=== PATIENT | male | born 1955 | race Caucasian/White ===

== ENCOUNTER → 2023-10-23 12:41 | Outpatient (REF) | payer OTHER, SELFPAY | LOC: RCS 12:41 | PROVIDERS: ATTENDING PHYSICIAN Nurse Practitioner Family; FAMILY PHYSICIAN Internal Medicine | DX: I10 Essential (primary) hypertension (principal); I48.0 Paroxysmal atrial fibrillation; G47.33 Obstructive sleep apnea (adult) (pediatric) | CPT/HCPCS: 93005 ==

== ENCOUNTER → 2023-11-02 09:55 | Outpatient (REF) | payer OTHER, SELFPAY | LOC: HWRAD 09:55 | PROVIDERS: ATTENDING PHYSICIAN Internal Medicine; FAMILY PHYSICIAN Internal Medicine | DX: R22.1 Localized swelling, mass and lump, neck (principal) | CPT/HCPCS: 76536 ==

== ENCOUNTER → 2024-10-28 13:58 | Outpatient (REF) | payer OTHER, SELFPAY | LOC: HWRAD 13:58 | PROVIDERS: ATTENDING PHYSICIAN Internal Medicine | DX: M16.12 Unilateral primary osteoarthritis, left hip (principal); S49.91XA Unspecified injury of right shoulder and upper arm, initial encounter | CPT/HCPCS: 73030; 73502 ==

== ENCOUNTER 2025-01-13 06:18 | Day surgery (SDC) | payer OTHER, SELFPAY | END 2025-01-13 10:31 | disposition home or self-care (01) | LOC: GI 06:18 | PROVIDERS: ATTENDING PHYSICIAN Internal Medicine Gastroenterology | DX: Z12.11 Encounter for screening for malignant neoplasm of colon (principal); K57.30 Diverticulosis of large intestine without perforation or abscess without bleeding; K64.8 Other hemorrhoids; K31.89 Other diseases of stomach and duodenum; K22.70 Barrett's esophagus without dysplasia; D12.3 Benign neoplasm of transverse colon; Z86.0100 Personal history of colon polyps, unspecified | CPT/HCPCS: 45385; 43239; 88305; 88342 ==

== ENCOUNTER → 2025-02-08 13:40 | Outpatient (REF) | payer OTHER, SELFPAY | LOC: RAD 13:40 | PROVIDERS: ATTENDING PHYSICIAN Internal Medicine | DX: Z01.818 Encounter for other preprocedural examination (principal) | CPT/HCPCS: 70030 ==

== ENCOUNTER → 2025-02-27 09:46 | Outpatient (REF) | payer OTHER, SELFPAY | LOC: RAD 09:46 | PROVIDERS: ATTENDING PHYSICIAN Internal Medicine | DX: Z01.818 Encounter for other preprocedural examination (principal) | CPT/HCPCS: 70030 ==

== ENCOUNTER 2025-07-03 21:20 | Emergency (ER) | payer OTHER, SELFPAY ==
[2025-07-03 21:32] VITALS: BP 158/96
[2025-07-03 21:49] LABS: Hematocrit 43.9 % (39.0-52.0); Hemoglobin 15.3 g/dL (13.0-18.0); Mean Corp Hgb Conc. 34.9 g/dL (33.0-37.0); Mean Corpuscular Volume 95.0 fL (80.0-94.0); Nucleated Red Blood Cells % 0 % (-); Platelet Count 153 10^3/uL (130-400); Red Cell Dist. Width 12.6 % (11.5-14.5)
[2025-07-03 22:11] LABS: ALT (SGPT) 13 U/L (0-50); AST (SGOT) 20 U/L (17-59); Albumin 4.4 g/dl (3.5-5.0); Alkaline Phosphatase 59 U/L (38-126); Blood Urea Nitrogen 23 mg/dl (9-20); Calcium 9.2 mg/dl (8.4-10.2); Carbon Dioxide 27 mmol/L (22-30); Chloride 104 mmol/L (98-107); Glucose 127 mg/dl (70-99); Potassium 3.8 mmol/L (3.5-5.1); Sodium 137 mmol/L (135-145); Total Protein 6.5 g/dl (6.3-8.2); eGFR > 60.00
[2025-07-03 22:15] LABS: Troponin I 0.020 ng/ml
[2025-07-03 23:08] VITALS: BP 115/66
--- NOTE | 2025-07-03 23:25 | ED.GENMED ---
History of Present Illness
General
Chief Complaint: Heart Rate Problem
Time Seen by Provider: 07/03/25 23:10
History of Present Illness
History of Present Illness:
70-year-old male with history of paroxysmal A-fib status post ablation presents to the emergency department for evaluation of heart palpitations that began earlier today. He states he used his [employer] mobile device which confirmed A-fib. At the
direction of his program lead he took an extra dose of short acting diltiazem as well as Eliquis, several hours later took a second dose of diltiazem. He did become dizzy while waiting evaluation in the emergency department waiting room. No chest
pain or shortness of breath. He is not chronically anticoagulated
Past History
Past History
ED Past Medical History: GERD and HTN
ED Past Surgical History: Cholecystectomy and Orthopedic (Fracture repair)
Social History
Tobacco: Non-smoker
Drug: None
Personal: Single
Living: alone
Employment: Employed
Review of Systems
Review of Systems
Allergies reviewed?: Yes
All Other Systems: ROS reviewed and negative except as documented in HPI and ROS
Phy Exam
Physical Exam
Physical Exam:
GEN: Well appearing, NAD, WDWN
HEENT: Oral mucosa moist, no scleral icterus
Cardiac: Bradycardic, regular, no murmur
Lung: No respiratory distress, no tachypnea
MSK: No gross deformity or injuries
Skin: Good color, no pallor or jaundice, no rashes
Neuro: AO x3, moves all extremities freely
Psych: Calm, cooperative
Course
Orders/Labs/Results
Orders:
Orders
07/03/25 21:20
EKG [Electrocardiogram (*1)] Urgent
Reason for Study: Atrial Fibrillation
EKG- Treatment ONCE
07/03/25 21:39
Complete Blood Count/With Diff Urgent
Comprehensive Metabolic Panel Urgent
Troponin I Urgent
Abnormal Lab Results
07/03/25
21:39
RBC 4.62 L 10^6/uL
(4.70-6.10)
MCV 95.0 H fL
(80.0-94.0)
MCH 33.1 H pg
(27.0-31.0)
BUN 23 H mg/dl
(9-20)
Glucose 127 H mg/dl
(70-99)
07/03/25 21:39
07/03/25 21:39
Vital Signs
Initial and Last Documented VS:
Initial Vital Signs
Temp Pulse Resp BP Pulse Ox
97.8 F 88 22 158/96 98
07/03/25 21:32 07/03/25 21:32 07/03/25 21:32 07/03/25 21:32 07/03/25 21:32
Last Documented Vital Signs
Temp Pulse Resp BP Pulse Ox
97.8 F 55 14 115/66 96
07/03/25 21:32 07/03/25 23:08 07/03/25 23:08 07/03/25 23:08 07/03/25 23:25
MDM/Problems Addressed
MDM/Problems Addressed:
Patient converted to sinus bradycardia while awaiting evaluation in the ED. I have encouraged him to continue Eliquis twice daily given the repeat bout of A-fib until cardiology follow-up which she is scheduled on Thursday. Discussed future action
plan should he go back into A-fib while awaiting follow-up
Comment
Comment:
Initial EKG independently interpreted by me shows a rate controlled atrial fibrillation
Telemetry monitoring after arrival to the ED exam room shows the patient is in a sinus bradycardia
*Pulse Oximetry
SaO2: 96
Oxygen Mode of Delivery: Room air
Patient hypoxic: no
*Critical Care Note
Total Time (30-74mins, 75-104mins- exclusive of procedures): Not Applicable
ED Attending Note
-
Portions of this chart may have been created with voice recognition software.� Occasional wrong word or��sound alike� substitutions may have occurred due to the inherent limitations of voice recognition software.
Discharge Plan
Departure
Patient Disposition: Home (Routine Discharge)
Date of Disposition: 07/03/25
Time of Disposition: 23:25
Patient with high blood pressure during this ER visit?: No
Discharge Problem:
Paroxysmal atrial fibrillation
Instructions: Atrial Fibrillation (DC)
Prescriptions:
No Action
enalapril maleate 10 MG tablet
20 mg PO BID
aspirin 81 MG tablet,delayed release (DR/EC)
81 mg PO DAILY
diltiazem HCl 240 MG capsule,extended release 24hr
240 mg PO DAILY
famotidine 40 MG tablet
40 mg PO HS
allopurinol 100 MG tablet
100 mg PO DAILY
Patient Comments:
02/15/2022: TAKEN W/ 300MG = 400MG
pantoprazole 40 MG tablet,delayed release (DR/EC)
40 mg PO DAILY
doxazosin 4 MG tablet
4 mg PO HS
allopurinol 300 MG tablet
300 mg PO DAILY
Patient Comments:
02/15/2022: TAKEN W/ 100MG = 400MG
docusate sodium [Colace] 100 mg capsule
100 mg PO BID Qty: 60 0RF
mecobalamin (vitamin B12) 1,000 mcg tablet,chewable
1,000 mcg PO DAILY Qty: 30 0RF
Metamucil 3.4 gram/5.4 gram powder
1 tbsp PO DAILY Qty: 660 0RF
Activity Restrictions/Additional Instructions:
Take your Eliquis twice daily until your program lead follow up visit
Interventions
Interventions:
*Risk Screen - Suicide Last Done: 07/03/25 21:32
*General Assessment Last Done: 07/03/25 23:00
*Neglect/Abuse Screening Last Done: 07/03/25 21:32
*ED- Fall Risk Assessment Last Done: 07/03/25 23:00
*ED COVID-19 Vaccine History Last Done: 07/03/25 23:14
*ED Influenza Vaccine History Last Done: 07/03/25 23:00
*Nursing Disposition Last Done: 07/03/25 23:38
ED- Cardiac Assessment Last Done: 07/03/25 23:00
ED- Pulmonary Assessment Last Done: 07/03/25 23:00
Discharge Date and Time
Discharge Date/Time: 07/03/25 23:39
Print Language: SYRIAC
== END 2025-07-03 23:39 | disposition home or self-care (01) ==
LOC: EMR 21:20
PROVIDERS: Emergency Medicine; EMERGENCY PHYSICIAN Emergency Medicine; FAMILY PHYSICIAN Internal Medicine
DX: I48.0 Paroxysmal atrial fibrillation (principal); I10 Essential (primary) hypertension; Z90.49 Acquired absence of other specified parts of digestive tract
CPT/HCPCS: 99284; 80053; 84484; 85025; 93005

== ENCOUNTER 2025-07-23 19:20 | Inpatient (IN) | payer OTHER, SELFPAY ==
[2025-07-23] VITALS (31 sets, daily range): BP systolic 98–146; BP diastolic 48–99; BMI 31.5; BMI 32.2
[2025-07-23 15:20] LABS: Hematocrit 44.1 % (39.0-52.0); Hemoglobin 16.0 g/dL (13.0-18.0); Mean Corp Hgb Conc. 36.3 g/dL (33.0-37.0); Mean Corpuscular Volume 89.6 fL (80.0-94.0); Nucleated Red Blood Cells % 0 % (-); Platelet Count 185 10^3/uL (130-400); Red Cell Dist. Width 11.9 % (11.5-14.5)
[2025-07-23] MEDS: CARDIZEM 10 MG IV ×2 (15:29→16:51)
[2025-07-23] MEDS: CARDIZEM 125 IV ×2 (15:29→22:35)
[2025-07-23 15:49] LABS: Blood Urea Nitrogen 29 mg/dl (9-20); Calcium 9.4 mg/dl (8.4-10.2); Carbon Dioxide 16 mmol/L (22-30); Chloride 105 mmol/L (98-107); Estimated Creatinine Clearance 57 ml/min; Glucose 104 mg/dl (70-99); Sodium 134 mmol/L (135-145); eGFR 59.84
[2025-07-23] MEDS: NSS 500 IV (16:03)
[2025-07-23 16:24] LABS: Potassium 3.8 mmol/L (3.5-5.1)
--- NOTE | 2025-07-23 17:55 | ED.GENMED ---
History of Present Illness
General
Chief Complaint: Heart Rate Problem
Source: patient
Time Seen by Provider: 07/23/25 15:01
History of Present Illness
History of Present Illness:
Note:
CHIEF COMPLAINT(S)
Irregular heart rhythm and low blood pressure.
HISTORY OF PRESENT ILLNESS
The patient is a 70-year-old male with a history of atrial fibrillation status post-ablation, presenting with concerns of irregular heart rhythm. The patient reports a history of experiencing palpitations, describing them as a feeling of the heart
'beating in a certain kind of way' and occasionally 'taking the breath away.' The patient monitors his pulse and notes irregularities which he associates with atrial fibrillation. He utilizes a cardiac device at home to confirm his suspicions of
being in atrial fibrillation and adjusts his anticoagulant, Eliquis (apixaban), accordingly. However, Eliquis is not routinely taken due to a prior gastrointestinal bleed approximately three years ago, opting instead for episodic use when symptoms
are present.
Recently, the patient self-administered medication based on an episode of irregular heartbeat, which resulted in hypotension measured at approximately 85/70 mmHg. The patient managed this initially at home by increasing oral intake, raising his
blood pressure to about 100 mmHg and contemplated whether to seek medical care. Symptoms began on the previous day. Upon review in the facility, the patient was found to be in atrial flutter with a ventricular rate of 145 beats per minute. The
patient has a history of undergoing electrical and pharmacological interventions for rhythm yazdanism in the past, with occasional self-resolution.
PHYSICAL EXAM
General: Alert, no acute distress.
Cardiovascular: Regular rhythm with tachycardia.
Respiratory: Lungs clear.
Extremities: No cyanosis, no edema
Neuro exam: Awake alert and oriented x 3, cranial nerves intact, no focal motor deficits
Abdomen nondistended
Skin: Dry, intact
PLAN
1. Administer intravenous diltiazem to slow the heart rate and potentially facilitate conversion to normal sinus rhythm.
2. Review the patients previous medical records for history of interventions and outcomes.
3. Monitor the patients heart rate and rhythm closely following intervention.
4. Discuss long-term management plans, including potential adjustments to anticoagulation therapy in consultation with cardiology, considering the patients history of gastrointestinal bleeding.
DIFFERENTIAL DIAGNOSIS
The Differential Diagnosis includes, in no particular order and is not limited to:
1. Atrial fibrillation
2. Atrial flutter
3. Paroxysmal supraventricular tachycardia
4. Multifocal atrial tachycardia
5. Ventricular tachycardia
6. Sinus tachycardia secondary to medications or dehydration
7. Medication-induced arrhythmia
8. Anxiety-related palpitations
9. Hyperthyroidism
10. Heart failure exacerbation
ADDITIONAL HISTORY OBTAINED FROM SOURCES OTHER THAN THE PATIENT
Not applicable.
EXTERNAL RECORDS REVIEWED
Not applicable.
CHRONIC MEDICAL CONDITIONS SIGNIFICANTLY AFFECTING CARE
Atrial fibrillation, History of gastrointestinal bleed
SOCIAL DETERMINANTS AFFECTING HEALTH
Not applicable.
ALLERGIES
None known.
PAST MEDICAL HISTORY
Atrial fibrillation
PAST SURGICAL HISTORY
Ablation for atrial fibrillation
FAMILY HISTORY
Not applicable.
IMMUNIZATION HISTORY
Not applicable.
SOCIAL HISTORY
Not applicable.
MEDICATIONS
Eliquis (apixaban), episodically taken. Other medications or specific dosages are not mentioned.
REVIEW OF SYSTEMS
- Cardiovascular: Palpitations, irregular pulse.
- Neurological: Near syncope upon standing.
EKG
My independent EKG interpretation is:
- Time of EKG: Not specified
- Rhythm: Atrial flutter
- Heart rate: 145 bpm
- [place]: Normal
- Abnormalities: No specific ST-T wave changes, no QRS changes
Disposition:
SUMMARY OF ENCOUNTER
The patient is a 70-year-old male with a history of atrial fibrillation, presenting with atrial flutter with rapid ventricular response. Due to prior gastrointestinal bleeding, the patient is not on continuous anticoagulation. Today, the patient
self-administered a dose of apixaban (Eliquis) and experienced a near-syncopal episode at home. Upon evaluation in the emergency department, the patients ventricular rate improved after receiving diltiazem, although he remains in atrial flutter with
variable block. The case was discussed with cardiology, which suggested that emergency department cardioversion may be risky due to the patients anticoagulation status.
DISPOSITION
Admit
ASSESSMENT
The patient presents with atrial flutter with rapid ventricular response, complicated by irregular anticoagulation due to a history of gastrointestinal bleeding.
EMERGENCY TREATMENTS ADMINISTERED
Intravenous diltiazem was administered to control heart rate.
MANAGEMENT OF THE PATIENTS CARE WAS DISCUSSED WITH
Dr. Hannah Temple, Cardiology
PLAN
The patient will be admitted for further management of atrial flutter. Consideration for pharmacological cardioversion with amiodarone and potential transesophageal echocardiogram-guided cardioversion if required.
INDEPENDENT REVIEW OF LABS AND INTERPRETATION OF TESTS
My independent EKG interpretation is atrial flutter with a ventricular rate of 145 bpm, normal axis, without specific ST-T wave or QRS changes.
MEDICATION RECONCILIATION
Apixaban (Eliquis), not routinely taken due to history of gastrointestinal bleeding. Patient reports taking a dose today.
MEDICAL DECISION MAKING
-Complexity of Data Reviewed: Chronic conditions affecting care include atrial fibrillation and history of gastrointestinal bleeding. Differential diagnosis includes atrial fibrillation, atrial flutter, paroxysmal supraventricular tachycardia,
multifocal atrial tachycardia, ventricular tachycardia, sinus tachycardia, medication-induced arrhythmia, anxiety-related palpitations, hyperthyroidism, and heart failure exacerbation.
-Data:
Category 1:
My independent interpretation of EKG shows atrial flutter.
Category 3:
Discussion of management with Dr. Hannah Temple, Cardiology.
-Risk:
Consideration of Admission/Observation: Escalation of care including admission/observation was considered given the complexity and risk of the patients presenting complaint, exam findings, and underlying comorbidities. However, ultimately, I feel
the patient is safe for outpatient management with close follow-up. Reasoning: Work-up reassuring, does not reveal any acute life/organ-threatening processes, patients symptoms well controlled upon reevaluation, reexamination is reassuring, vitals
are stable, patient agreeable with discharge, reliable for follow-up.
DIAGNOSIS
Atrial flutter with variable block (I48.3)
Atrial fibrillation (I48.91)
Past History
Past History
ED Past Medical History: GERD and HTN
ED Past Surgical History: Cholecystectomy and Orthopedic (Fracture repair)
Social History
Tobacco: Non-smoker
Drug: None
Personal: Single
Living: alone
Employment: Employed
Phy Exam
Physical Exam
Physical Exam:
.
Course
Orders/Labs/Results
Orders:
Orders
07/23/25 14:53
Electrocardiogram (*1) Urgent
Reason for Study: Atrial Fibrillation
EKG- Treatment ONCE
07/23/25 15:10
Basic Metabolic Panel Urgent
Complete Blood Count/With Diff Urgent
TSH Reflex To Free T4 Urgent
07/23/25 15:18
Diltiazem 125 mg/125 ml Nss [Cardizem] 125 mg in 125 ml IV NOW
Initial dose in mg/hr, then titrate:: 10
Titrate to keep:: Heart rate 80-100 bpm
Titrate by mg/hr:: 5 mg/hr
Frequency of titrations (minutes):: 15
Maximum dose in mg/hr:: 15
Diltiazem HCl [Cardizem] 10 mg IV NOW STA
07/23/25 15:57
Potassium Urgent
07/23/25 15:58
0.9% Sodium Chloride 500 ml [Nss] 500 ml IV BOLUS
07/23/25 16:37
Diltiazem HCl [Cardizem] 10 mg IV NOW STA
07/23/25 16:46
Diltiazem HCl [Cardizem] 15 mg IV NOW STA
07/23/25 17:11
Electrocardiogram (*1) Urgent
Reason for Study: Abnormal EKG
EKG- Treatment ONCE
Abnormal Lab Results
07/23/25
15:10
MCH 32.5 H pg
(27.0-31.0)
Absolute Monos (auto) 0.7 H 10^3/uL
(0.1-0.6)
Sodium 134 L mmol/L
(135-145)
Carbon Dioxide 16 L mmol/L
(22-30)
BUN 29 H mg/dl
(9-20)
Glucose 104 H mg/dl
(70-99)
07/23/25 15:10
07/23/25 15:57
Vital Signs
Initial and Last Documented VS:
Initial Vital Signs
Temp Pulse Resp BP Pulse Ox
97.7 F 144 17 114/85 99
07/23/25 14:57 07/23/25 14:57 07/23/25 14:57 07/23/25 14:57 07/23/25 14:57
Last Documented Vital Signs
Temp Pulse Resp BP Pulse Ox
97.7 F 98 12 118/78 96
07/23/25 14:57 07/23/25 16:51 07/23/25 16:15 07/23/25 16:15 07/23/25 17:56
*Pulse Oximetry
SaO2: 96
Oxygen Mode of Delivery: Room air
Patient hypoxic: no
*Search Coordinator Interpretation
Rate: tachycardiac
Interpretation: abnormal
Rhythm: atrial flutter
*Critical Care Note
Total Time (30-74mins, 75-104mins- exclusive of procedures): 40 minutes
ED Attending Note
-
Portions of this chart may have been created with voice recognition software.� Occasional wrong word or��sound alike� substitutions may have occurred due to the inherent limitations of voice recognition software.
Discharge Plan
Departure
Patient Disposition: Admit
Date of Disposition: 07/23/25
Time of Disposition: 17:55
Admit to: Telemetry
Presentation/result/management discussed w/ accepting MD/DO: Hospitalist
Discharge Problem:
Atrial flutter with rapid ventricular response
Prescriptions:
No Action
aspirin 81 MG tablet,delayed release (DR/EC)
81 mg PO DAILY
diltiazem HCl 240 MG capsule,extended release 24hr
240 mg PO DAILY
famotidine 40 MG tablet
40 mg PO HS
allopurinol 100 MG tablet
400 mg PO DAILY
pantoprazole 40 MG tablet,delayed release (DR/EC)
40 mg PO DAILY
doxazosin 4 MG tablet
4 mg PO HS
enalapril maleate 20 mg Tablet
20 mg PO BID
diltiazem HCl 60 mg Tablet
60 mg PO TIDPRN PRN (Reason: AFIB)
rosuvastatin [Crestor] 10 mg Tablet
10 mg PO QPM
Metamucil 3.4 gram/5.4 gram powder
2 tbsp PO DAILY
Referrals:
Vance Fiore DO [Family Provider, Internal Medicine]
Interventions
Interventions:
*Risk Screen - Suicide Last Done: 07/23/25 14:58
*General Assessment Last Done: 07/23/25 14:58
*Neglect/Abuse Screening Last Done: 07/23/25 14:58
*ED COVID-19 Vaccine History Last Done: 07/23/25 14:58
*ED Influenza Vaccine History Last Done: 07/23/25 14:58
[facility] Fall Risk Assessment Tool Last Done: 07/23/25 16:25
ED- Cardiac Assessment Last Done: 07/23/25 16:26
ED- Pulmonary Assessment Last Done: 07/23/25 16:26
Discharge Date and Time
Print Language: WELSH
--- NOTE | 2025-07-23 18:17 | W.PN.UPDATE ---
Update Note
Progress Note Update
This note serves as an addendum to the H&P by dispensary attendant Candy Blum
HPI
70M HX Prx AF s/p -ablation, on Diltiazem seen at ER
- evaluation for irregular heart rhythm
- reports palpitations- reports irregular heart beats
- occasionally associated with SoB
- utilizes a cardiac device at home to confirm his suspicions of being in atrial fibrillation and adjusts his anticoagulant, Eliquis (apixaban), accordingly
- Eliquis is not routinely taken due to a prior GIB approximately three years ago, opting instead for episodic use when symptoms are present.
- Recently, self-administered medication based on an episode of irregular heartbeat, which resulted in hypotension measured at approximately 85/70 mmHg.
- Symptoms began on the previous day.
Patient was found to be in atrial flutter with a VR 145
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
HX untreated STEPHEN
- non compliance with HS CPAP for yrs
Relevant VS
Temp Pulse Resp BP Pulse Ox
97.7 F 98 12 118/78 96
07/23/25 14:57 07/23/25 16:51 07/23/25 16:15 07/23/25 16:15 07/23/25 17:56
PE
Gen: NAD , conversant , appropriate
HEENT: symmetric facial expression, fluent speech
Neck: supple
Lungs: CTA
Cor:irregular tachycardia
Abdomen:�soft NT NG NRT
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
MS: No edema
Psych: appropriate
Relevant Data
07/03/25 07/23/25
21:39 15:10
WBC 7.6
Hgb 15.3 16.0
Plt Count 153 185
07/23/25 07/23/25
15:10 15:57
Sodium 134 L
Potassium 3.8
Chloride 105
Carbon Dioxide 16 L
BUN 29 H
Creatinine 1.3
eGFR 59.84
TSH (Reflex) 2.84
EKG report
ATRIAL FIBRILLATION
LEFT AXIS DEVIATION
NONSPECIFIC ST AND T WAVE ABNORMALITY
ABNORMAL ECG
WHEN COMPARED WITH ECG OF 23-Jul-2025 14:55,
ATRIAL FIBRILLATION HAS REPLACED SINUS RHYTHM
VENT. RATE HAS DECREASED by 65 bpm
QRS DURATION HAS DECREASED
INVERTED T WAVES HAVE REPLACED NONSPECIFIC T WAVE ABNORMALITY IN INFERIOR LEADS
NONSPECIFIC T WAVE ABNORMALITY, WORSE IN LATERAL LEADS
03/22/21 TTE
Normal biventricular size and systolic function without regional wall motion abnormality.
Estimated ejection fraction is 65-70%.
Normal diastolic function.
Mildly dilated left atrium. Measures 4.2cm via m-mode. Indexed LA volume is mildly abnormal (35-41 mL/m2).
Trivial mitral regurgitation.
Trileaflet aortic valve. Trace aortic regurgitation.
Mild tricuspid regurgitation.
Estimated pulmonary artery pressure of 38 mmHg. Assuming a right atrial pressure of 3 mmHg.
Sinuses of Valsalva 4.2cm, ST junction is 3.3cm, Ascending AO is 3.7cm
Compared to prior study. 05/05/2019, LV systolic function remains preserved.
Left atrium is now mildly dilated. Mitral regurgitation previously graded mild.
Trace aortic regurgitation now seen. Mild aortic root dilatation unchanged, previously measured 4.2 cm at the sinus of Valsalva
Last hospitalist admission:02/15/2022 - 02/17/2022
PRINCIPAL DISCHARGE DIAGNOSES:
1. Lower gastrointestinal bleed from diverticular bleed.
2. Acute blood loss anemia.
3. Vitamin B12 deficiency.
ASSESSMENT & PLAN
Recurrent Prx AF improved rate control with Diltiazem gtt
- s/p Ablation ( 2021)
- associated with near-syncopal episode at home
- EKG showing sinus rhythm
- c/w Diltiazem gtt
- Currently on baby ASA only
- Not on Eliquis due to prior HX GIB
- Today, the patient self-administered a dose of apixaban (Eliquis) and will cont.
- At ER : ventricular rate improved after receiving diltiazem, although he remains in atrial flutter with variable block.
- Hi risk for CV due to not consistently on Eliquis
- Thus will keep NPO after MN - to consider JENNIFER , if not clot to consider CV
- DCA card consult
Essential HN
- c/w Enlarpril - hold for SBP < 110
- currently on Diltiazem gtt
HX GIB suspected lower with acute blood loss anemia ( 2021)
Prior Colonoscopy showing diverticular disease and hemorrhoids. No active bleed
HX Vitamin B12 deficiency
Gout.
HX nasal turbinates surgery in December 06.
Suspected sleep apnea.
HX cervical spinal spondylosis and radiculopathy.
HX colonic polyps.
HX cholecystectomy.
HX appendectomy.
DVT PPX: SQH
Full code
IVU
--- NOTE | 2025-07-23 18:26 | HPS.HSE ---
Family Physician
-
Family Physician: Vance Fiore
Chief Complaint
-
irregular heart rhythm
History of Present Illness
Patient is a 70-year-old male with past medical history significant for essential hypertension, hyperlipemia, paroxysmal atrial fibrillation, gout, obstructive sleep apnea and GERD who presented to [facility] ED for evaluation of irregular heart rhythm.
Patient reports that symptoms of palpitations started yesterday with intermittent shortness of breath. Patient checked rhythm on home device and started Eliquis (patient reports he takes PRN when in afib and does not take routinely r/t previous GI
bleed 3 years ago). Denies any recent illness, sick contact, chest pain, nausea or vomiting.
Medical History
Past Medical History
Past Medical History: Reports Other
Additional Past Medical History:
essential hypertension
hyperlipemia
paroxysmal atrial fibrillation
gout
obstructive sleep apnea
GERD
Kendrick esophagus
Past Surgical History: Reports Other
Additional Past Surgical History:
cardiac ablation
MOHS
Gallbladder [facility] 1998
R Tibia Fx , Screws
Tooth Implant 02/2019
PVI 03/27/21
Social History
Tobacco: Non-smoker
Alcohol: Occasional
Drug: None
Family History
Family History: Not pertinent
Allergies / Home Medications
Allergies reflects when Allergies were last updated in [employer].
Home Medications with original date entered in [employer]
Allergy/Medication List:
Allergies
Allergy/AdvReac Type Severity Reaction Status Date / Time
No Known Allergies Allergy Verified 07/23/25 14:58
Home Medications
allopurinol 100 mg tablet 400 mg PO DAILY Gout 10/16/21
aspirin 81 mg tablet,delayed release 81 mg PO DAILY Blood clot prevention/tx 10/16/21
diltiazem HCl 240 mg capsule,extended release 24 hr 240 mg PO DAILY Blood pressure 10/16/21
doxazosin 4 mg tablet 4 mg PO HS Urinary issue 10/16/21
famotidine 40 mg tablet 40 mg PO HS Gastrointestinal issue 10/16/21
pantoprazole 40 mg tablet,delayed release 40 mg PO DAILY Gastrointestinal issue 10/16/21
diltiazem HCl 60 mg tablet 60 mg PO TIDPRN PRN AFIB 07/23/25
enalapril maleate 20 mg tablet 20 mg PO BID 07/23/25
psyllium husk 3.4 gram/5.4 gram oral powder (Metamucil) 2 tbsp PO DAILY Constipation 07/23/25
rosuvastatin 10 mg tablet (Crestor) 10 mg PO QPM High Cholesterol 07/23/25
Review of Systems
-
History Source: Patient
Constitutional: Denies Fever or Chills
EENT: Denies Sore Throat
Respiratory: Reports Trouble Breathing (intermittent shortness of breath); Denies Cough or Hemoptysis
Cardiac: Reports Palpitations; Denies Chest Pain, Diaphoresis or Syncope
Abdomen/GI: Denies Abdominal Pain, Nausea, Vomiting or Diarrhea
: Denies Dysuria or Frequency
Musculoskeletal: Denies Joint Pain
Skin: Denies Rash
Neurological: Denies Dizzy, Headache, Weakness or Numbness
Physical Exam
Vital Signs
Vital Signs
Temp Pulse Resp BP Pulse Ox
97.7 F 98 12 118/78 96
07/23/25 14:57 07/23/25 16:51 07/23/25 16:15 07/23/25 16:15 07/23/25 17:56
Physical Exam
General: Well Developed, Well Nourished, No Apparent Distress, Comfortable, Conversant and Obese
HEENT: NormoCephalic, Moist mucous membranes, PERRLA, Nose Appears Normal and Ears Appear Normal
Respiratory: Clear and Non Labored Respirations; No Wheezes, Rales or Rhonchi
Cardiac: Irregular Rhythm and Tachycardia; No Murmur, Rub or Peripheral Edema
GI: Soft, Non Tender, Non Distended and Normal Bowel Sounds
Musculoskeletal: No Clubbing and No Cyanosis
Skin: Warm and IV/Catheter Site
Neuro: Awake and AO x 3
Psych: Calm and Intact Judgment/Insight
Laboratory Results
-
07/23/25 15:10
07/23/25 15:57
Laboratory Results
Total Bilirubin Cancelled 07/23/25 15:10
AST Cancelled 07/23/25 15:10
ALT Cancelled 07/23/25 15:10
Alkaline Phosphatase Cancelled 07/23/25 15:10
Data Reviewed
-
Medical Tests (Nuc Med, Echo, EKG etc): Report Reviewed by me (EKG: ATRIAL FIBRILLATION LEFT AXIS DEVIATION NONSPECIFIC ST AND T WAVE ABNORMALITY)
Lab Data: Labs Reviewed by me (Na 134, CO2 16, )
Impression/Plan
-
IMPRESSION/PLAN:
#irregular heart beat, palpitations and intermittent shortness of breath likely 2/2 a-fib RVR
#paroxysmal atrial fibrillation
irregular heart beat, palpitations and intermittent shortness of breath
home device confirmed a-fib, patient restarted Eliquis, last dose this morning (uses PRN r/t previous GIB 3 years ago)
s/p cardiac ablation 2021
EKG: ATRIAL FIBRILLATION
LEFT AXIS DEVIATION
NONSPECIFIC ST AND T WAVE ABNORMALITY
- Admit to IVU
- Consult Cardiology
- diltiazem gtt
- NPO for possible JENNIFER CV tomorrow per Cardiology
- restart Eliquis routinely
#essential hypertension
- continue doxazosin and enalapril
#hyperlipemia
- continue rosuvastatin
#gout
- continue allopurinol
#GERD
- continue pantoprazole
#obstructive sleep apnea
non-complaint with CPAP
- encourage to follow up outpatient with pulmonary
Code status: full code
DVT prophylaxis: Eliquis
[2025-07-23] MEDS: VASOTEC PO ×2 (20:32→20:38)
[2025-07-23] MEDS: ELIQUIS 5 MG PO (20:44)
--- NOTE | 2025-07-23 21:21 | PTCARENOTE ---
Addendum entered by David Raza RN 07/23/25 21:34:
Cardizem 5 mg IV bolus ordered and given.
Original Note:
received the patient from the ED. AAOx3. denies any cp/palps/sob at this time. states feeling short of breath on exertion at times. HR appears to be a 2:1 Aflutter 140s. cardizem gtt at 15 ml/hr. denies any lightheadedness/dizziness. NPO at midnight
for a possible JENNIFER/CV. patient verbalized understanding. reached out to Radha atkins [employer] regarding high HR. awaiting orders.
[2025-07-23] MEDS: CARDIZEM 5 MG IV (21:32)
--- NOTE | 2025-07-23 21:43 | PTCARENOTE ---
cardizem bolus given as ordered. HR lowered into the 80s. bp tolerated bolus. 102/60.
noticed HR dipping into the 70s. cardizem gtt adjusted to 10 ml/hr. patient resting in the chair comfortable. no complaints at this time.
[2025-07-23] MEDS: CARDURA 4 MG PO (22:25)
[2025-07-23] MEDS: PEPCID 20 MG PO (22:25)
[2025-07-24] VITALS (9 sets, daily range): BP systolic 99–118; BP diastolic 58–76
--- NOTE | 2025-07-24 04:25 | PTCARENOTE ---
at approx 0413, patient self converted to SB/SR 50s-60s. bp 113/64. EKG completed. resting comfortably in bed.
--- NOTE | 2025-07-24 07:32 | W.PN.HOSP.TC ---
Today's Communication/Plan
-
see a/p
Assessment / Plan
Assessment / Plan
Physical Exam
General: No acute distress, appears comfortable at this time.
HEENT: NormoCephalic, Moist mucous membranes, PERRLA, Nose Appears Normal and Ears Appear Normal
Respiratory: Clear and Non Labored Respirations; No Wheezes, Rales or Rhonchi
Cardiac: Normal Sinus Rhythm; No Murmur, Rub or Peripheral Edema
GI: Soft, Non Tender, Non Distended and Normal Bowel Sounds
Musculoskeletal: No Clubbing and No Cyanosis
Neuro:AO x 3 conversant and coherent
Psych: Calm and Intact Judgment/Insight
70M HTN HLD pAfib Gout STEPHEN GERD here for afib rvr.
#a-fib RVR
#paroxysmal atrial fibrillation
s/p cardiac ablation 2021
- IVU admit
-treated with diltiazem gtt, subsequently spontaneous converted overnight NSR
- cont Eliquis
- Cardio eval appreciated cardizem gtt completed, patient started on Sotalol
#essential hypertension
- continue doxazosin and enalapril
#hyperlipemia
- continue rosuvastatin
#gout
- continue allopurinol
#GERD
- continue pantoprazole
#obstructive sleep apnea
non-complaint with CPAP
- encourage to follow up outpatient with pulmonary
Code status: full code
DVT prophylaxis: Eliquis
I spent a total of 40 minutes with the patient or on the floor. More than 50% of this time involved counseling and coordination of care.
Anticipated Discharge: 24 - 48 hours
Subjective/Interval History
-
Date of Service: July 24, 2025
Seen and examined at bedside, no acute distress, sitting up comfortably in chair. Overall reports feeling well. Chest pain free. Back in NSR.
Objective Data
-
Vital Signs:
Vital Signs
Temp Pulse Resp BP Pulse Ox
98.1 F 64 18 118/66 99
07/24/25 04:17 07/24/25 06:45 07/24/25 04:17 07/24/25 06:31 07/24/25 04:17
I&O
07/23/25 07/24/25 07/25/25
06:59 06:59 06:59
Intake Total 575 / 575
Balance 575 / 575
--- NOTE | 2025-07-24 07:32 | CON.CAR ---
Addendum entered and electronically signed by Josemanuel Temple MD 07/24/25 12:06:
Patient has had diverticular bleeding on combination therapy with aspirin and Eliquis. His PCI was in 2016. Would recommend the patient that he stay on Eliquis long-term and stop aspirin which might reduce his bleeding risk.
Addendum entered and electronically signed by Josemanuel Temple MD 07/24/25 11:59:
70-year-old man with history of paroxysmal atrial fibrillation and PVI. He is only intermittently on Eliquis related to history of diverticular bleeding. He was seen in the emergency department July 03 for atrial fibs and converted to sinus
rhythm on a diltiazem drip. He believes A-fib recurred on July 22, restarted Eliquis and presented to the emergency department on July 23 in rapid A-fib. He has converted to sinus rhythm spontaneously.
PMH: Obstructive sleep apnea not on CPAP, hypertension, hyperlipidemia, GERD, PAF with PVI May 2021, diverticular bleed, gout
Current medications: Allopurinol 400 mg a day, aspirin 81 mg a day, diltiazem CD2 140 mg a day
Doxazosin 4 mg a day, Vasotec 20 mg twice daily, famotidine 20 mg at bedtime, rosuvastatin 10 mg a day, apixaban 5 mg a day, sotalol 80 mg p.o. twice daily
109/59, pulse 67, respiratory rate 16, afebrile, sats 98%, weight is 90.5 kg, no acute distress, lungs are clear regular rate and rhythm abdomen benign extremities without clubbing cyanosis or edema
ECG: Atrial flutter with 2 1 conduction, EKG #2 better controlled rate
ECG 3 sinus rhythm, PACs, QTc 448 ms
White count 16, BUN/creatinine 32 and 1.2 potassium is 3.9
Impression:
Atypical atrial flutter
History of PAF, status post PVI 2020
Diverticular bleeding
Hypertension
Hyperlipidemia
Obstructive sleep apnea
GERD
Plan:
He has recurrent atypical atrial flutter, has spontaneously reverted to sinus rhythm, but it seems likely that recurrences will continue to happen given his recent history. Based on this it is best to add antiarrhythmic therapy to help suppress
atrial arrhythmia and thereafter at follow-up it could be determined whether or not he should proceed with a PCI.
Will start sotalol, reassessing LV wall thickness to make sure that he does not have significant LVH. He will require 5 doses in hospital for follow-up of QT interval.
Thereafter, he can follow-up to Dr. Thrasher and a can be determined whether he should undergo a second ablation or if sotalol should be continued long-term.
He is not drinking alcohol.
I encouraged him to use CPAP which may reduce the likelihood of atrial fibrillation. Weight loss will also be important.
Original Note:
Consultation
Consultation Request
Date/Time Consultation Requested: 07/24/2025
Date/Time Consultation Performed: 07/24/2025
Requesting Provider: Dr. Mayorga
Performing Provider: Rubia Polanco PA-C for Dr. Temple
Reason for Consultation: Recurrent Afib
Medical History
-
History of Present Illness:
HPI: Anastacio is a 70 year old male with PMH of paroxysmal atrial fibrillation s/p PVI, STEPHEN, HTN, HLD, GERD, and prior GIB. He presented to [facility] ER for evaluation of recurrent atrial fibrillation. He had recent episode of afib for which he was seen in
the ER on 07/03/2025. He was restarted on anticoagulation and spontaneously converted to SR on diltiazem drip. When seen in follow-up, remained in sinus rhythm and discussed options. Plan was to continue to follow for recurrences. He then had
recurrent A-fib noted 07/22/2025 and immediately restarted his Eliquis. He also took a dose of his as needed diltiazem 60mg. With this, he states his HR remained elevated, but blood pressure dropped. He went to bed, and when he woke up was still in
afib, so came to ER on 07/23. He was in rapid AF by EKG and was started on diltiazem gtt and admitted for further workup. He converted to SR overnight at approximately 415 AM and remains in SR on ECG and telemetry this AM. HR stable in the 60s. Feels
well at this time with no complaints. He notes he has been avoiding ETOH, but has not been compliant with CPAP but is planning on following up with sleep medicine to discuss options. Denies chest pain, palpitations, dizziness, or SOB.
PMH:
Paroxysmal atrial fibrillation
s/p PVI 03/27/2021
Not on chronic OAC due to h/o diverticular bleed
STEPHEN, noncompliant with CPAP
HTN
HLD
GERD
Past Medical History
Past Medical History: Other (In HPI)
Past Surgical History: Cardiac (PVI 2020) and Cholecystectomy
Social History
Tobacco: Non-Smoker
Alcohol: None (None for the past 3 weeks previously 2-3 drinks per day)
Drug: None
Family History
Family History: Reviewed & Not Pertinent
Allergies / Home Medications
Allergy/AdvReac Type Severity Reaction Status Date / Time
No Known Allergies Allergy Verified 07/23/25 14:58
�Medication �Instructions �Recorded �Confirmed �Type
allopurinol 100 mg tablet 400 mg PO DAILY Gout 10/16/21 07/23/25 History
aspirin 81 mg tablet,delayed 81 mg PO DAILY Blood clot 10/16/21 07/23/25 History
release prevention/tx
diltiazem HCl 240 mg 240 mg PO DAILY Blood pressure 10/16/21 07/23/25 History
capsule,extended release 24 hr
doxazosin 4 mg tablet 4 mg PO HS Urinary issue 10/16/21 07/23/25 History
famotidine 40 mg tablet 40 mg PO HS Gastrointestinal issue 10/16/21 07/23/25 History
pantoprazole 40 mg tablet,delayed 40 mg PO DAILY Gastrointestinal 10/16/21 07/23/25 History
release issue
alprazolam 0.25 mg tablet (Xanax) 0.25 mg PRN PRN anxiety 07/23/25 07/23/25 History
diltiazem HCl 60 mg tablet 60 mg PO TIDPRN PRN AFIB 07/23/25 07/23/25 History
enalapril maleate 20 mg tablet 20 mg PO BID 07/23/25 07/23/25 History
psyllium husk 3.4 gram/5.4 gram 2 tbsp PO DAILY Constipation 07/23/25 07/23/25 History
oral powder (Metamucil)
rosuvastatin 10 mg tablet (Crestor) 10 mg PO QPM High Cholesterol 07/23/25 07/23/25 History
Review of Systems
-
History Source: Patient
All other systems: Negative unless noted
Physical Exam
Vital Signs
Temp Pulse Resp BP Pulse Ox
98.1 F 64 18 118/66 99
07/24/25 04:17 07/24/25 06:45 07/24/25 04:17 07/24/25 06:31 07/24/25 04:17
Lab Results
07/23/25 15:10
07/23/25 15:57
Physical Exam
General: Well Developed, Well Nourished and No Apparent Distress
HEENT: Normocephalic, Anicteric and Moist Mucous Membranes
Respiratory: Clear and Non Labored Respirations
Cardiac: S1/S2 and Regular Rhythm
Musculoskeletal: No Clubbing, No Cyanosis and No Edema
Skin: Warm and Dry
Neuro: AO x 3 and Nonfocal/Grossly Intact
Psych: Calm
Impression / Plan
-
PCP: Dr. Fiore
[employer]: Dr. Thrasher
Impression:
Presented with palpitations
Paroxysmal atrial fibrillation w/ RVR
s/p PVI 03/27/2021
Not on chronic OAC due to h/o diverticular bleed
STEPHEN, noncompliant with CPAP
HTN
HLD
GERD
Echo 03/22/2021: EF 65-70%, trivial MR, trace AR, mild TR, estimated PAP 38 mmHg
Echo 07/24/2025: Study pending
Plan:
-Presented with recurrent Afib. Restarted Eliquis within 24 hours of onset.
-Continue Eliquis 5mg BID. h/o GIB noted. Hgb stable at 16.0 with no signs of bleeding.
-Converted to SR on diltiazem gtt overnight. Remains in SR with PACs on EKG this AM.
-This is his second episode of recurrent afib within the past month. Does have h/o PVI in 2020.
-TSH within normal limits. K 3.8 on 07/23. Will recheck BMP and mag this AM.
-Check echo. Prior echo in 2020 with preserved EF and no significant valvular disease as noted above.
-He has been avoiding ETOH since last episode of afib. Not compliant with CPAP, but planning on following up with sleep medicine to discuss management options.
-Will plan to start sotalol 80mg Q12H. QTc stable at 448ms this AM. Continue to follow.
-Sotalol may act as bridge to repeat ablation. Will discuss further as OP.
-Given h/o GIB, may consider watchman as OP.
-Continue Enalapril, rosuvastatin.
HPI: Anastacio is a 70 year old male with PMH of paroxysmal atrial fibrillation s/p PVI, STEPHEN, HTN, HLD, GERD, and prior GIB. He presented to [facility] ER for evaluation of recurrent atrial fibrillation. He had recent episode of afib for which he was seen in
the ER on 07/03/2025. He was restarted on anticoagulation and spontaneously converted to SR on diltiazem drip. When seen in follow-up, remained in sinus rhythm and discussed options. Plan was to continue to follow for recurrences. He then had
recurrent A-fib noted 07/22/2025 and immediately restarted his Eliquis. He also took a dose of his as needed diltiazem 60mg. With this, he states his HR remained elevated, but blood pressure dropped. He went to bed, and when he woke up was still in
afib, so came to ER on 07/23. He was in rapid AF by EKG and was started on diltiazem gtt and admitted for further workup. He converted to SR overnight at approximately 415 AM and remains in SR on ECG and telemetry this AM. HR stable in the 60s. Feels
well at this time with no complaints. He notes he has been avoiding ETOH, but has not been compliant with CPAP but is planning on following up with sleep medicine to discuss options. Denies chest pain, palpitations, dizziness, or SOB.
Data Reviewed
-
EKG: Tracing Personally Visualized and interpreted
Labs: Labs Reviewed by me
Old Records: Reviewed
[2025-07-24] MEDS: VASOTEC 20 MG PO ×2 (08:22→19:31)
[2025-07-24] MEDS: ASPIR LOW (ENTERIC COATED) 81 MG PO (08:22)
[2025-07-24] MEDS: CARDIZEM CD 240 MG PO (08:22)
[2025-07-24] MEDS: ELIQUIS 5 MG PO ×2 (08:22→19:31)
[2025-07-24] MEDS: METAMUCIL, KONSYL 1 PACKET PO (08:23)
[2025-07-24] MEDS: ZYLOPRIM 400 MG PO (08:23)
[2025-07-24] MEDS: PROTONIX 40 MG PO (08:23)
--- NOTE | 2025-07-24 08:32 | PTCARENOTE ---
Assumed care. Patient AO x3. SR HR 64, VSS. Cardizem gtt stopped. PO Cardizem given. NPO canceled, regular diet. Patient in chair, call caldera in reach
[2025-07-24 10:18] LABS: Blood Urea Nitrogen 32 mg/dl (9-20); Calcium 9.2 mg/dl (8.4-10.2); Carbon Dioxide 23 mmol/L (22-30); Chloride 107 mmol/L (98-107); Estimated Creatinine Clearance 62 ml/min; Glucose 156 mg/dl (70-99); Magnesium 2.0 mg/dl (1.6-2.3); Potassium 3.9 mmol/L (3.5-5.1); Sodium 137 mmol/L (135-145); eGFR > 60.00
--- NOTE | 2025-07-24 10:25 | CM ---
Chart reviewed. Patient is independent of ADLS, lives with his significant other in a [address], [address], [address]. Plan is for the patient to return home. CM to follow
[2025-07-24] MEDS: BETAPACE 80 MG PO ×2 (11:35→22:15)
[2025-07-24] MEDS: CRESTOR 10 MG PO (19:31)
[2025-07-24] MEDS: PEPCID 20 MG PO (22:15)
[2025-07-24] MEDS: CARDURA 4 MG PO (22:15)
--- NOTE | 2025-07-24 23:14 | PTCARENOTE ---
Received patient at change of shift. SR on the monitor, HR in the 60s. Tikosyn administered as per order, EKG ordered 2 hours after as per protocol. No complaints from pt at this time, call caldera within reach.
[2025-07-25] VITALS (8 sets, daily range): BP systolic 110–138; BP diastolic 62–77
[2025-07-25] MEDS: ZYLOPRIM 400 MG PO (08:24)
[2025-07-25] MEDS: METAMUCIL, KONSYL 1 PACKET PO (08:25)
[2025-07-25] MEDS: PROTONIX 40 MG PO (08:25)
[2025-07-25] MEDS: ELIQUIS 5 MG PO ×2 (08:25→19:59)
--- NOTE | 2025-07-25 08:26 | W.PN.HOSP.TC ---
Today's Communication/Plan
-
cont sotalol as per Cardio, possible discharge AM after 5th dose
Assessment / Plan
Assessment / Plan
Physical Exam
General: No acute distress, appears comfortable at this time.
HEENT: NormoCephalic, Moist mucous membranes, PERRLA, Nose Appears Normal and Ears Appear Normal
Respiratory: Clear and Non Labored Respirations; No Wheezes, Rales or Rhonchi
Cardiac: Normal Sinus Rhythm; No Murmur, Rub or Peripheral Edema
GI: Soft, Non Tender, Non Distended and Normal Bowel Sounds
Musculoskeletal: No Clubbing and No Cyanosis
Neuro:AO x 3 conversant and coherent
Psych: Calm and Intact Judgment/Insight
70M HTN HLD pAfib Gout STEPHEN GERD here for afib rvr.
#a-fib RVR
#paroxysmal atrial fibrillation
s/p cardiac ablation 2021
- IVU admit
-treated with diltiazem gtt, subsequently spontaneous converted overnight NSR
- cont Eliquis
- Cardio eval appreciated cardizem gtt completed, patient started on Sotalol, home PO Cardizem discontinued.
#essential hypertension
- continue doxazosin and enalapril
#hyperlipemia
- continue rosuvastatin
#gout
- continue allopurinol
#GERD
- continue pantoprazole
#obstructive sleep apnea
non-complaint with CPAP
- encourage to follow up outpatient with pulmonary
Code status: full code
DVT prophylaxis: Eliquis
I spent a total of 40 minutes with the patient or on the floor. More than 50% of this time involved counseling and coordination of care.
Anticipated Discharge: Within 24 hours
Subjective/Interval History
-
Date of Service: July 25, 2025
no acute distress, overall reports feeling well, sitting up comfortably in chair. Denies new acute issues including sob chest pain palpitation
Objective Data
-
Vital Signs:
Vital Signs
Temp Pulse Resp BP Pulse Ox
97.5 F 50 18 121/66 98
07/25/25 04:43 07/25/25 08:15 07/25/25 04:43 07/25/25 04:42 07/25/25 04:43
I&O
07/24/25 07/25/25 07/26/25
06:59 06:59 06:59
Intake Total 575 / 575
Balance 575 / 575
[2025-07-25] MEDS: CARDIZEM CD PO (08:54)
[2025-07-25] MEDS: VASOTEC 20 MG PO ×2 (08:56→19:59)
[2025-07-25] MEDS: BETAPACE 80 MG PO ×2 (08:56→19:59)
--- NOTE | 2025-07-25 10:09 | W.PN.CARDCBS ---
Addendum entered and electronically signed by Lázaro Roche MD 07/25/25 10:24:
I saw and examined the patient.
The Motor Rebuilder's note was reviewed and I agree with the note.
Comment: Briefly, 70-year-old man past medical history of atrial fibrillation with prior PVI in 2020 who presents with palpitations and was found to be in atrial flutter with rapid ventricular response. Patient spontaneously converted to sinus
rhythm.
Sotalol started on 07/24/2025
Telemetry reviewed, patient is maintaining sinus rhythm. At times bradycardic. Plan to reduce diltiazem dose.
Continue Eliquis for risk reduction of cardioembolic stroke
Has received third dose of sotalol this a.m. Tentative plan for discharge tomorrow after fifth dose.
He should follow-up with his primary blade operator Dr. Thrasher to discuss EP study and repeat ablation
Original Note:
Today's Communication / Plan
-
Continue sotalol 80 mg every 12 hours
Follow QTc by EKG
Cardizem decreased with hold parameters in place, may need to stop entirely
Continue Eliquis
Plan for DC in a.m. after fifth dose
Will arrange outpatient EP follow-up
Impression / Plan
-
PCP: Dr. Fiore
Hog Feeder: Dr. Thrasher
Impression:
Presented with palpitations
Paroxysmal atrial fibrillation w/ RVR
s/p PVI 03/27/2021
Not on chronic OAC due to h/o diverticular bleed
STEPHEN, noncompliant with CPAP
HTN
HLD
GERD
Echo 03/22/2021: EF 65-70%, trivial MR, trace AR, mild TR, estimated PAP 38 mmHg
Echo 07/24/2025: EF 59%, no regional wall motion abnormalities noted, mild MR, mild TR, PAP 27 mmHg
Plan:
- Presented with recurrence of Afib. Restarted Eliquis within 24 hours of onset. He has history of PVI in 2020
- He has history of GI bleeding, thus far no issues and hemoglobin stable
- Converted to sinus rhythm and remains in sinus rhythm at this time.
- Initiated on sotalol 80 mg every 12 hours. Tolerating with stable QTc by review of EKGs, continue
- In sinus bradycardia on review of telemetry overnight. Decreased p.o. Cardizem to 120 mg daily with hold parameters in place. May need to stop entirely while on sotalol
- Echo with results as above, stable compared to prior
- TSH within normal limits
- Patient reports he has been avoiding alcohol and caffeine. He has not been compliant with CPAP, however plans to follow-up with his sleep doctor to discuss options
- Will arrange outpatient EP follow-up to discuss repeat ablation
- Given history of GI bleed, if recurrent bleeding issues on OAC, would consider candidacy for Watchman
- Continue Enalapril, rosuvastatin.
- Plan for DC to home in a.m.
- Discussed with nursing
HPI: Anastacio is a 70 year old male with PMH of paroxysmal atrial fibrillation s/p PVI, STEPHEN, HTN, HLD, GERD, and prior GIB. He presented to [facility] ER for evaluation of recurrent atrial fibrillation. He had recent episode of afib for which he was seen in
the ER on 07/03/2025. He was restarted on anticoagulation and spontaneously converted to SR on diltiazem drip. When seen in follow-up, remained in sinus rhythm and discussed options. Plan was to continue to follow for recurrences. He then had
recurrent A-fib noted 07/22/2025 and immediately restarted his Eliquis. He also took a dose of his as needed diltiazem 60mg. With this, he states his HR remained elevated, but blood pressure dropped. He went to bed, and when he woke up was still in
afib, so came to ER on 07/23. He was in rapid AF by EKG and was started on diltiazem gtt and admitted for further workup. He converted to SR overnight at approximately 415 AM and remains in SR on ECG and telemetry this AM. HR stable in the 60s. Feels
well at this time with no complaints. He notes he has been avoiding ETOH, but has not been compliant with CPAP but is planning on following up with sleep medicine to discuss options. Denies chest pain, palpitations, dizziness, or SOB.
Progress Note - Hog Feeder
Subjective
Date of Service: July 25, 2025
No issues overnight. Denies lightheadedness/dizziness
Objective
Labs:
07/23/25 15:10
07/24/25 09:42
Labs
Hgb 16.0 g/dL (13.0-18.0) 07/23/25 15:10
Hct 44.1 % (39.0-52.0) 07/23/25 15:10
Plt Count 185 10^3/uL (130-400) 07/23/25 15:10
Sodium 137 mmol/L (135-145) 07/24/25 09:42
Potassium 3.9 mmol/L (3.5-5.1) 07/24/25 09:42
BUN 32 mg/dl (9-20) H 07/24/25 09:42
Creatinine 1.2 mg/dL (0.7-1.3) 07/24/25 09:42
Glucose 156 mg/dl (70-99) H 07/24/25 09:42
Vital Signs and I&O:
Vital Signs
Temp Pulse Resp BP Pulse Ox
98.4 F 58 16 112/68 98
07/25/25 08:55 07/25/25 08:56 07/25/25 08:55 07/25/25 08:56 07/25/25 08:55
Vital Signs
Temp Pulse Resp BP Pulse Ox
98.4 F 58 16 112/68 98
07/25/25 08:55 07/25/25 08:56 07/25/25 08:55 07/25/25 08:56 07/25/25 08:55
Intake & Output
07/23/25 07/24/25 07/25/25 07/26/25
07:59 07:59 07:59 07:59
Intake Total 575 / 575
Balance 575 / 575
Physical Exam
Physical Exam
GEN: No distress, awake, alert, oriented x3. Sitting in chair
HEENT: supple, anicteric, mmm, EOMI
LUNGS: CTA bilaterally, no wheezes/rales
CV: Reg and capri, S1/S2, no murmur
ABD: soft, BS+, NT/ND
EXT: No cyanosis, clubbing, edema
NEURO: Gross non-focal
SKIN: Warm, pink, dry. No rash
--- NOTE | 2025-07-25 10:28 | CM ---
Chart reviewed. Patient is independent of ADLS, lives with his in a [address], [address], [facility] [address]. Plan is for the patient to return home.
--- NOTE | 2025-07-25 12:29 | PTCARENOTE ---
Addendum entered by Mohinder Moyer RN 07/25/25 13:08:
Patient SB HR 39-43 at rest and 63 with ambulating in the halls, BP right arm 121/66. Notified Shaniqua Sanchez. Cardizem PO discontinued and not given today
Original Note:
Patient SB HR 39-43 at rest and 63 with ambulating in the halls, BP right arm 121/66. Cardizem PO discontinued and not given today
[2025-07-25] MEDS: CRESTOR 10 MG PO (16:10)
[2025-07-25] MEDS: PEPCID 20 MG PO (22:12)
[2025-07-25] MEDS: CARDURA 4 MG PO (22:12)
--- NOTE | 2025-07-25 22:40 | PTCARENOTE ---
Received patient at change of shift. SB on the monitor, HR in the 40-50s, asymptomatic. Okay to give Sotalol with this HR per Dr. Thrasher. EKG ordered as per protocol. No complaints from pt at this time, call caldera within reach.
[2025-07-26 04:14] VITALS: BP 121/74
[2025-07-26 07:28] VITALS: BP 147/75
--- NOTE | 2025-07-26 07:46 | W.PN.HOSP.TC ---
Today's Communication/Plan
-
discharge
Assessment / Plan
Assessment / Plan
Physical Exam
General: No acute distress, appears comfortable at this time.
HEENT: NormoCephalic, Moist mucous membranes, PERRLA, Nose Appears Normal and Ears Appear Normal
Respiratory: Clear and Non Labored Respirations; No Wheezes, Rales or Rhonchi
Cardiac: Normal Sinus Rhythm; No Murmur, Rub or Peripheral Edema
GI: Soft, Non Tender, Non Distended and Normal Bowel Sounds
Musculoskeletal: No Clubbing and No Cyanosis
Neuro:AO x 3 conversant and coherent
Psych: Calm and Intact Judgment/Insight
70M HTN HLD pAfib Gout STEPHEN GERD here for afib rvr.
#a-fib RVR
#paroxysmal atrial fibrillation
s/p cardiac ablation 2021
- IVU admit
-treated with diltiazem gtt, subsequently spontaneous converted overnight NSR
- cont Eliquis
- Cardio eval appreciated cardizem gtt completed, patient started on Sotalol, home PO Cardizem discontinued.
#essential hypertension
- continue doxazosin and enalapril
#hyperlipemia
- continue rosuvastatin
#gout
- continue allopurinol
#GERD
- continue pantoprazole
#obstructive sleep apnea
non-complaint with CPAP
- encourage to follow up outpatient with pulmonary
Code status: full code
DVT prophylaxis: Eliquis
Medically stable for discharge home with outpatient follow up recommendations.
Total Time Preparing Discharge __40 minutes including examination of the patient, summary of the hospital stay, instructions for continuing care to all relevant caregivers; and preparation of discharge records, prescriptions, and referral
forms if necessary.
Anticipated Discharge: Today
Subjective/Interval History
-
Date of Service: July 26, 2025
Seen and examined at bedside in no acute distress sitting up comfortably in chair. overall reports feeling well. Denies dizziness lightheadedness. Ambulating without need for assist device. Looking forward to going home.
Objective Data
-
Vital Signs:
Vital Signs
Temp Pulse Resp BP Pulse Ox
98 F 50 15 147/75 95
07/26/25 04:16 07/26/25 07:28 07/26/25 07:28 07/26/25 07:28 07/26/25 07:28
[2025-07-26] MEDS: ELIQUIS 5 MG PO (08:45)
[2025-07-26] MEDS: VASOTEC 20 MG PO (08:46)
[2025-07-26] MEDS: BETAPACE 80 MG PO (08:48)
[2025-07-26] MEDS: PROTONIX 40 MG PO (08:49)
[2025-07-26] MEDS: ZYLOPRIM 400 MG PO (08:49)
[2025-07-26] MEDS: METAMUCIL, KONSYL 1 PACKET PO (08:49)
--- NOTE | 2025-07-26 10:15 | PTCARENOTE ---
Assumed care of the pt @ 0700. Pt is AAOx3 SB 40-50's on the monitor denies pain. bp stable 5th dose Sotalol given EKG due 1045. Pt ambulating in the room call caldera within reach.
[2025-07-26 11:13] VITALS: BP 136/84
--- NOTE | 2025-07-26 12:01 | W.PN.CARDCBS ---
Addendum entered and electronically signed by Lázaro Roche MD 07/26/25 12:59:
I saw and examined the patient.
The Tunnel Elastic Operator Lockstitch's note was reviewed and I agree with the note.
Comment: Briefly, 70-year-old man past medical history of atrial fibrillation with prior PVI in 2020 who presents with palpitations and was found to be in atrial flutter with rapid ventricular response. Patient spontaneously converted to sinus
rhythm.
Received fifth dose of sotalol earlier today
Telemetry reviewed, patient is maintaining sinus rhythm with heart rate around 50 bpm
QTc has remained stable
Plan to discontinue diltiazem due to bradycardia -patient is asymptomatic
Continue Eliquis for risk reduction of cardioembolic stroke
Case discussed with electrophysiology
Stable for discharge from my perspective. Outpatient follow-up to be arranged.
Original Note:
Today's Communication / Plan
-
asymptomatic sinus capri
sotalol 80mg BID
cardizem cd stopped
eliquis 5mg BID
continue enalapril, cardura
OP EP follow up arranged
Ok for DC
Impression / Plan
-
PCP: Dr. Fiore
Weight Caller: Dr. Thrasher
Impression:
Presented with palpitations
Paroxysmal atrial fibrillation w/ RVR
s/p PVI 03/27/2021
Not on chronic OAC due to h/o diverticular bleed
STEPHEN, noncompliant with CPAP
HTN
HLD
GERD
Echo 03/22/2021: EF 65-70%, trivial MR, trace AR, mild TR, estimated PAP 38 mmHg
Echo 07/24/2025: EF 59%, no regional wall motion abnormalities noted, mild MR, mild TR, PAP 27 mmHg
Plan:
- Presented with recurrence of Afib. Restarted Eliquis within 24 hours of onset. He has history of PVI in 2020
- He has history of GI bleeding, thus far no issues and hemoglobin stable
- Converted to sinus rhythm and remains in sinus capri at this time on review of tele. asymptomatic
- Initiated on sotalol 80 mg every 12 hours. Tolerating with stable QTc by review of EKGs. reviewed with EP 07/26, continue at current dosing
- OP cardizem stopped this admission due to bradycardia. will follow BPs in OP setting, also on enalapril and cardura, continue
- Echo with results as above, stable compared to prior, reviewed with patient 07/26
- TSH within normal limits
- Patient reports he has been avoiding alcohol and caffeine. He has not been compliant with CPAP, however plans to follow-up with his sleep doctor to discuss options
- outpatient EP follow-up arranged to discuss repeat ablation
- Given history of GI bleed, if recurrent bleeding issues on OAC, would consider candidacy for Watchman
- Continue Enalapril, rosuvastatin.
- Plan for DC to home
- Discussed with nursing, hospitalist
HPI: Anastacio is a 70 year old male with PMH of paroxysmal atrial fibrillation s/p PVI, STEPHEN, HTN, HLD, GERD, and prior GIB. He presented to [facility] ER for evaluation of recurrent atrial fibrillation. He had recent episode of afib for which he was seen in
the ER on 07/03/2025. He was restarted on anticoagulation and spontaneously converted to SR on diltiazem drip. When seen in follow-up, remained in sinus rhythm and discussed options. Plan was to continue to follow for recurrences. He then had
recurrent A-fib noted 07/22/2025 and immediately restarted his Eliquis. He also took a dose of his as needed diltiazem 60mg. With this, he states his HR remained elevated, but blood pressure dropped. He went to bed, and when he woke up was still in
afib, so came to ER on 07/23. He was in rapid AF by EKG and was started on diltiazem gtt and admitted for further workup. He converted to SR overnight at approximately 415 AM and remains in SR on ECG and telemetry this AM. HR stable in the 60s. Feels
well at this time with no complaints. He notes he has been avoiding ETOH, but has not been compliant with CPAP but is planning on following up with sleep medicine to discuss options. Denies chest pain, palpitations, dizziness, or SOB.
Progress Note - Weight Caller
Subjective
Date of Service: July 26, 2025
no SOB, palpitations, lightheadedness/dizziness
Objective
Labs:
07/23/25 15:10
07/24/25 09:42
Labs
Hgb 16.0 g/dL (13.0-18.0) 07/23/25 15:10
Hct 44.1 % (39.0-52.0) 07/23/25 15:10
Plt Count 185 10^3/uL (130-400) 07/23/25 15:10
Sodium 137 mmol/L (135-145) 07/24/25 09:42
Potassium 3.9 mmol/L (3.5-5.1) 07/24/25 09:42
BUN 32 mg/dl (9-20) H 07/24/25 09:42
Creatinine 1.2 mg/dL (0.7-1.3) 07/24/25 09:42
Glucose 156 mg/dl (70-99) H 07/24/25 09:42
Vital Signs and I&O:
Vital Signs
Temp Pulse Resp BP Pulse Ox
97.4 F 43 18 136/84 96
07/26/25 11:54 07/26/25 11:30 07/26/25 11:54 07/26/25 11:13 07/26/25 11:54
Vital Signs
Temp Pulse Resp BP Pulse Ox
97.4 F 43 18 136/84 96
07/26/25 11:54 07/26/25 11:30 07/26/25 11:54 07/26/25 11:13 07/26/25 11:54
Intake & Output
12/08/07/25/25 07/26/25 07/27/25
07:59 07:59 07:59 07:59
Intake Total 575 / 575
Balance 575 / 575
Physical Exam
Physical Exam
GEN: No distress, awake, alert, oriented x3. sitting in chair
HEENT: supple, anicteric, mmm, eomi
LUNGS: CTA B/L, no wheezes
CV: Reg and capri, S1/S2, no murmur
ABD: soft, BS+, NT/ND
EXT: No cyanosis, clubbing, edema
NEURO: Gross non-focal
SKIN: Warm, pink, dry. No rash
--- NOTE | 2025-07-26 12:30 | W.DCSUMMARY ---
Discharge Summary
Discharge Data
Date of Admission: 07/23/25
Date of Discharge: 07/26/25
-
Pending Results: No
Discharge Plan
-
Patient Disposition: Home (Routine Discharge)
Discharge Diagnosis/Procedures: atrial fibrillation, sotalol loading
Condition: Fair
Diet: Low Cholesterol and Low Sodium
Activity: As tolerated
Driving Restrictions: As prior to admission
Bathing Restrictions: None
Activity Restrictions/Additional Instructions:
Follow up with primary care provider in 1 week of discharge and keep your appointment with Cardiology.
Eliquis has been prescribed for stroke risk reduction atrial fibrillation. Aspirin was subsequently discontinued to reduce your risk of bleeding.
Sotalol has been prescribed for heart rate control, reduce your risk for recurrent atrial fibrillation. Cardizem was subsequently discontinued due to concerns bradycardia.
Please take medications as prescribed/recommended and follow up with primary care provider cardiology and/or other healthcare provider involved in your care for refills and/or further adjustment to your medication regimen as necessary.
Referrals:
Ej Thrasher MD [Active, Cardiology] - 08/15/25 8:20 am
Referral Note: You have a cardiology/electrophysiology follow-up appointment at the [place] office. Please call with questions
Vance Fiore DO [Family Provider, Internal Medicine] - in one week
Additional Discharge Medication Instructions: STOP cardizem cd 240mg daily as you are now on sotalol!
Prescriptions:
New
Eliquis 5 mg Tablet
5 mg PO BID Qty: 60 0RF
sotalol 80 mg Tablet
80 mg PO BID Qty: 60 0RF
Continued
famotidine 40 MG tablet
40 mg PO HS
allopurinol 100 MG tablet
400 mg PO DAILY
pantoprazole 40 MG tablet,delayed release (DR/EC)
40 mg PO DAILY
doxazosin 4 MG tablet
4 mg PO HS
enalapril maleate 20 mg Tablet
20 mg PO BID
rosuvastatin [Crestor] 10 mg Tablet
10 mg PO QPM
Metamucil 3.4 gram/5.4 gram powder
2 tbsp PO DAILY
alprazolam [Xanax] 0.25 mg Tablet
0.25 mg PRN PRN (Reason: anxiety)
Discontinued
aspirin 81 MG tablet,delayed release (DR/EC)
81 mg PO DAILY
diltiazem HCl 240 MG capsule,extended release 24hr
240 mg PO DAILY
diltiazem HCl 60 mg Tablet
60 mg PO TIDPRN PRN (Reason: AFIB)
Discharge Orders:
Discharge Patient (As Directed); Ordered 07/26/25
Ordered By: Chong Villarreal
Care Plan Goals
Care Plan Goals:
Problem: Readiness for enhanced knowledge related to diagnosis and treatment plan
Goal: Understand your diagnosis and treatment plan needs, including medications if applicable.
Instructions: Know your diagnosis, underlying causes and treatment plan options, including medications if applicable. Consult with your health care team to learn about your diagnosis and treatment plan, including medications if applicable.
Discharge Date and Time
Print Language: YI
--- NOTE | 2025-07-26 13:40 | PTCARENOTE ---
Pt was discharged to home. PIV and Tele monitor removed prior to discharge. Pt called [facility] to confirm Sotalol is avail for grain picker today. Pt was escorted out via wheelchair.
== END 2025-07-26 13:45 | disposition home or self-care (01) | DRG 310 ==
LOC: IVU 19:20
PROVIDERS: Physician Assistant; ADMITTING PHYSICIAN Internal Medicine; ATTENDING PHYSICIAN Internal Medicine; CONSULT PHYSICIAN Internal Medicine Cardiovascular Disease; EMERGENCY PHYSICIAN Emergency Medicine; FAMILY PHYSICIAN Internal Medicine
DX: I48.0 Paroxysmal atrial fibrillation (principal); I48.4 Atypical atrial flutter; I10 Essential (primary) hypertension; G47.33 Obstructive sleep apnea (adult) (pediatric); K21.9 Gastro-esophageal reflux disease without esophagitis; M10.9 Gout, unspecified; E78.5 Hyperlipidemia, unspecified; Z79.01 Long term (current) use of anticoagulants; Z79.82 Long term (current) use of aspirin; Z79.899 Other long term (current) drug therapy; Z91.199 Patient's noncompliance with other medical treatment and regimen due to unspecified reason
CPT/HCPCS: 80048; 83735; 84132; 84443; 85025; 93005; 93306; 96361; 96374; 96376; 99291